=== PATIENT | female | born 1980 | race Caucasian/White ===

== ENCOUNTER 2017-05-20 21:34 | Emergency (ER) | payer OTHER ==
[~2017-05-20] VITALS: Ht 152.4 cm; Wt 69.0 kg
[2017-05-20 22:32] LABS: CLARITY URINE CLOUDY (CLEAR); COLOR URINE ORANGE (YELLOW); GLUCOSE URINE NEGATIVE (NEGATIVE); KETONES URINE TRACE (NEGATIVE); LEUKOCYTE ESTERASE URINE 2+ (NEGATIVE); NITRITE URINE NEGATIVE (NEGATIVE); OCCULT BLOOD URINE 3+ (NEGATIVE); PH URINE 5.5 (4.5-8.0); PROTEIN URINE 1+ (NEGATIVE); SPECIFIC GRAVITY URINE 1.035 (1.005-1.030)
[2017-05-20 22:46] VITALS: BP 102/61
[2017-05-21] MEDS ORDERED: IBUPROFEN 600MG TABLET PO ONE (00:30)
[2017-05-21] MEDS ORDERED: ONDANSETRON 4MG ODT PO ONE (00:30)
== END 2017-05-21 00:25 | disposition left against medical advice (07) ==
LOC: ER 21:34
DX: N93.9 Abnormal uterine and vaginal bleeding, unspecified (principal); Z53.21 Procedure and treatment not carried out due to patient leaving prior to being seen by health care provider
CPT/HCPCS: 81001; 81025; Z7610

== ENCOUNTER 2017-09-03 17:58 | Emergency (ER) | payer OTHER ==
[~2017-09-03] VITALS: Ht 160 cm; Wt 67.0 kg
[2017-09-03 23:47] VITALS: BP 105/72
== END 2017-09-03 23:47 | disposition home or self-care (01) ==
LOC: ER 17:58
DX: J06.9 Acute upper respiratory infection, unspecified (principal); M79.1 Myalgia
CPT/HCPCS: 99283; Z7610